=== PATIENT | female | born 1940 | race Caucasian/White ===

== ENCOUNTER → 2022-08-22 14:32 | Outpatient (BNVA) | payer MEDICARE, SELFPAY | PROVIDERS: PCP Nurse Practitioner Family; Visit Provider Family Medicine | DX: M54.50 Low back pain, unspecified (principal); M25.572 Pain in left ankle and joints of left foot; E78.5 Hyperlipidemia, unspecified; R73.9 Hyperglycemia, unspecified; I10 Essential (primary) hypertension | CPT/HCPCS: 72100; 73610; 80053; 80061; 83036 ==

== ENCOUNTER → 2022-09-16 09:59 | Outpatient (BNVA) | payer MEDICARE, SELFPAY | PROVIDERS: PCP Family Medicine; Visit Provider Podiatrist Foot & Ankle Surgery | DX: S82.832A Other fracture of upper and lower end of left fibula, initial encounter for closed fracture (principal); W17.2XXA Fall into hole, initial encounter | CPT/HCPCS: 73610; 99204 ==

== ENCOUNTER 2022-09-18 09:08 | Outpatient (CLI) | payer MEDICARE, SELFPAY ==
--- NOTE | 2022-09-18 09:15 | USCV_ITS ---
Nory Miramontes Age: 82 Gender: F : 1940 Exam Date: 09/18/2022 09:23 Ordering Phys: Laurence Light NP Technologist: Yanna Rob [place] [facility] [place]ication: Carotid stenosis history Risk Factors: hypertension Previous Vascular Surgery: None Right Brachial BP: / Left Brachial BP: / Right Left Velocity (cm/s) Spectral Plaque Velocity (cm/s) Spectral Plaque Syst/Diast Broadening Syst/Diast Broadening 58.40/ 9.90 Prox CCA 94.80 / 22.10 46.10/ 10.30 Mid CCA 75.00 / 14.30 39.30/ 9.40 Hetro Distal CCA 56.20 / 12.10 54.40/ 10.10 Prox ICA 119.10/ 25.40 Hetro 70.10/ 17.90 Mid ICA 53.60 / 11.70 76.70/ 21.10 Distal ICA 70.90 / 14.50 135.40 ECA 120.20 1.31 ICA/CCA 1.26 Antegrade Vertebral Antegrade 58.40/ 13.20 cm/s 63.20/ 13.70 cm/s Tri Subclavian Tri 103.6 0 CONCLUSIONS Right ICA stenosis <50%. Moderate atheromatous plaque right carotid bulb/ICA. Left ICA stenosis <50% at the upper end of the range.moderate atheromatous plaque left carotid bulb/ICA. Normal antegrade Doppler flow noted in the right vertebral artery. Normal antegrade Doppler flow noted in the left vertebral artery. Mark Samaniego MD (Electronically Signed) Final Date: 18 September 2022 10:14 S
== END 2022-09-18 09:09 | disposition home or self-care (01) ==
LOC: RAD 09:12
PROVIDERS: PCP Family Medicine; Visit Provider Nurse Practitioner Family
DX: I65.22 Occlusion and stenosis of left carotid artery (principal)
CPT/HCPCS: 93880

== ENCOUNTER 2022-10-18 07:31 | Day surgery (SDC) | payer MEDICARE, SELFPAY ==
--- NOTE | 2022-10-18 07:46 | PM.OPSURHP ---
Providers/Chief Complaint Primary Care Provider: Ly Saavedra MD History of Present Illness Nory Miramontes is a 82 year old female that states that last 2021, she fell in a hole in her garden.? She reports going to [facility] ED and had x-rays and was told it was not fractured.? She states that the pain never resolved and neither did the swelling.? She went to [facility] walk in in [facility] last month and was told that her ankle was fractured.? Patient has swelling to medial and lateral sides of left ankle present.? She states that she has increased pain Review of Systems General: Reports: 10 or more systems reviewed and unremarkable except in HPI and below Const: Denies: fever(s) or chills Eyes: Denies: change in vision Card: Denies: chest pain or palpitations Resp: Denies: dyspnea or productive cough GI: Denies: abdominal pain, nausea or vomiting : Denies: flank pain Musc: Reports: extremity pain, joint pain, joint stiffness, limited range of motion and deformity Skin/Breast: Reports: skin tenderness; Denies: rash Neuro: Reports: difficulty walking; Denies: numbness in extremities, sensory changes or frequent falls Psych: Denies: suicidal ideation Lionel/Lymph: Denies: easy bruising Medications/Allergies Home Medications Medication Instructions Recorded Confirmed Last Taken Type aspirin 81 mg capsule 81 mg PO DAILY 07/11/22 10/24/22 10/13/22 History cholecalciferol (vitamin D3) 50 50 mcg PO DAILY 07/11/22 10/24/22 10/17/22 History mcg (2,000 unit) capsule coenzyme Q10 200 mg capsule 200 mg PO DAILY #90 caps 07/11/22 10/24/22 10/17/22 Rx cyanocobalamin (vitamin B-12) 500 250 mcg PO DAILY 07/11/22 10/24/22 10/17/22 History mcg tablet hydrochlorothiazide 25 mg tablet 25 mg PO DAILY 07/11/22 10/24/22 10/17/22 History losartan 100 mg tablet 100 mg PO DAILY 07/11/22 10/24/22 10/17/22 History metoprolol tartrate 50 mg tablet 50 mg PO BID 07/11/22 10/24/22 10/18/22 History omega 3-ews-wld-fish oil 300 1 cap PO DAILY 1210/24/22 10/17/22 History mg-1,000 mg capsule (Fish Oil) simvastatin 20 mg tablet 20 mg PO DAILY 07/11/22 10/24/22 10/17/22 History tumeric 100 mg-sangita 150 mg-olive cap PO 07/11/22 10/24/22 10/17/22 History 50 mg-oreg 150 mg-caprylate capsule amlodipine 5 mg tablet See Rx Instructions .Route 09/19/22 10/24/22 10/17/22 Rx .COMPLEX #90 tabs Allergies Allergy/AdvReac Type Severity Reaction Status Date / Time nickel Allergy ALGY-Rash Verified 10/24/22 14:17 codeine AdvReac Intermediate NAUSEA Verified 10/24/22 14:17 Penicillins AdvReac Intermediate HIVES Verified 10/24/22 14:17 Sulfa (Sulfonamide AdvReac Intermediate HIVES Verified 10/24/22 14:17 Antibiotics) PFSH PFSH: Medical History Fibroid tumor Hyperlipidemia Hypertension Left carotid artery occlusion Surgical History History of tonsillectomy History of tubal ligation Family History Father Bleeding disorder Hyperlipidemia CAD (coronary artery disease) Thyroid disease Hyperthyroidism Mother Dementia alzhimers Grandfather Dementia maternal Grandmother Hypertension maternal Denies family history of Diabetes Chronic kidney disease (CKD) Lung disease Cancer Social History Smoking and tobacco status: former smoker Second hand smoke exposure: No Female Reproductive History: Para: 2 Vital Signs Vitals Signs: Last Vital Signs Temp 97.2 F L 10/18/22 09:54 Pulse 66 10/18/22 10:02 Resp 18 10/18/22 10:02 BP 147/61 10/18/22 10:02 Pulse Ox 96 10/18/22 10:02 O2 Del Method 10/18/22 09:54 Physical Exam Const: COMMON NORMALS: no acute distress, patient oriented x3 and alert HENMT: COMMON NORMALS: normocephalic HEAD & SCALP: normocephalic Eye: COMMON NORMALS: Equal, round and reactive pupils present, EOMs intact bilaterally and conjunctivae normal CONJUNCTIVA: Yes conjunctivae normal PUPIL: Yes Equal, round and reactive pupils present Chest: CHEST: Yes Symmetrical chest wall rise Resp: COMMON NORMALS: normal respiratory effort, No use of accessory muscles and clear to auscultation bilaterally EFFORT & INSPECTION: Yes able to speak in complete sentences and Yes symmetric chest movement AUSCULTATION: clear to auscultation bilaterally Cardio: COMMON NORMALS: regular rate, regular rhythm, No murmurs present (Cardio) and Peripheral pulses 2+ throughout RATE: regular rate RHYTHM: regular rhythm PERIPHERAL PULSES: Peripheral pulses 2+ throughout Extremity: COMMON NORMALS: capillary refill normal, no calf tenderness and no pedal edema (Focal edema right ankle medial and lateral malleolus) GENERAL: Yes edema LEFT LOWER EXTREMITY: Yes ankle joint (Pain at left lateral malleolus.) Left ankle: Yes inspection (No abrasion or laceration), Yes palpation (Pain to palpation medial and lateral malleolus.), Yes ROM (Guarded secondary to pain), Yes neurovascular exam (Dorsalis pedis and posterior tibial arteries palpable) and Yes other Neuro: COMMON NORMALS: patient oriented x3 SENSORIUM/ORIENTATION: Yes alert OTHER: Protective sensation intact to light touch of the left foot. Psych: COMMON NORMALS: mental status grossly normal and cooperative Skin: COMMON NORMALS: no wounds NARRATIVE SKIN EXAM: Ecchymosis at the medial lateral malleolus right ankle. No fracture blisters present. GENERAL SKIN EXAM: no erythema TRAUMA: no lacerations HAIR: general thinning Data 10/18/22 08:00 10/18/22 08:00 A&P Assessment and plan (1) Left ankle pain: (2) Painful orthopaedic hardware: Plan 82-year-old female presents with nonhealing left distal fibular fracture, is a minimally displaced transverse fracture she sustained from an injury last summer.? She cannot tolerate palpation to the distal fibula, left ankle.? She has pain with weightbearing, standing and everyday activities at the left ankle.? States that this is affecting her quality of life also has difficulty sleeping due to the pain.? Would like to discuss surgical options.? Discussed a variety of surgical options.? Both interfragmentary fixation versus hook plate.? Would also like to order a bone stimulator given the length of time on the type of fracture that she has potentially should have healed on its own.? Will require minimum of protected weightbearing with Cam boot postoperatively versus nonweightbearing 6 weeks pending intraoperative findings and type of fixation utilized.? Planning on a hook plate.? Will be scheduled for outpatient surgery October 18.? Will require previous x-rays done at [facility] to submit for bone stimulator approval. I reviewed at length with the patient, the risks, potential complications, benefits, alternatives, expectations, and typical outcomes associated with the surgery. The risks and potential complications were explained in detail, including but not limited to infection, wound dehiscence or soft tissue complications, bleeding and hematoma, chronic edema, neuritis or nerve damage producing numbness or chronic pain, CRPS, failure to relieve pain or worsening pain, thick / painful / unsightly scar, limited motion / stiffness, malposition, delayed union, malunion, or nonunion, fracture, reaction to implants, anesthetic complications, venous thromboembolism, and deformity recurrence.? I discussed the notion of no regrets with the patient as it pertains to complications and outcomes. The patient seemed to understand the nature of the proposed care and required convalescence. They asked appropriate questions, answered to their satisfaction. They are aware no guarantees can be made as to a satisfactory outcome and they understand there may be other possible unforeseen complications or outcomes not listed here that will be treated accordingly if they arise. There were no written or implied guarantees given to the patient. They gave informed consent to proceed. Patient n.p.o. since midnight. Informed consent signed by patient myself. I initialed her left ankle. Coding Level of Care Code Acute Code for [facility] Fwd Diagnoses Left ankle pain M25.572 Painful orthopaedic hardware T84.84XA
[2022-10-18 07:49] VITALS: BP 157/63; PULSE 54; RESP 16; TEMP 36.6; O2SAT 96
--- NOTE | 2022-10-18 08:07 | ANES.PREANE2 ---
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 Operation Date: 10/18/22 09:40 Proposed Procedures p : Resection of nonunion with internal fixation left fibula 82001,S82.62XK(Left) - Guru Garcia DPM Familial anesthetic complications: PONV Was Beta Augustin taken within 24 hours: Yes Was Clonidine taken within 24 hours: N/A Last intake: Intake Last Liquid Date 10/17/22 Last Liquid Time 21:00 Last Solid Date 10/17/22 Last Solid Time 20:00 Social No alcohol and No tobacco Exam alert, oriented x 3, clear to auscultation bilaterally and regular rate & rhythm Airway Mallampati: Class II Dentition: full CV/HEM Hypertension Metabolic Hyperlipidemia Anesthetic Plan ASA status: 2 Anesthesia: General Risk of > 500 ml blood loss (7ml/kg in children): No Medications/Allergies Home Medications Medication Instructions Recorded Confirmed Last Taken Type aspirin 81 mg capsule 81 mg PO DAILY 07/11/22 10/17/22 10/13/22 History cholecalciferol (vitamin D3) 50 50 mcg PO DAILY 07/11/22 10/17/22 10/17/22 History mcg (2,000 unit) capsule coenzyme Q10 200 mg capsule 200 mg PO DAILY #90 caps 07/11/22 10/17/22 10/17/22 Rx cyanocobalamin (vitamin B-12) 500 250 mcg PO DAILY 07/11/22 10/17/22 10/17/22 History mcg tablet hydrochlorothiazide 25 mg tablet 25 mg PO DAILY 07/11/22 10/17/22 10/17/22 History losartan 100 mg tablet 100 mg PO DAILY 07/11/22 10/17/22 10/17/22 History metoprolol tartrate 50 mg tablet 50 mg PO BID 07/11/22 10/17/22 10/18/22 History omega 8-svu-vlg-fish oil 300 1 cap PO DAILY 07/11/22 10/17/2210/17/23 History mg-1,000 mg capsule (Fish Oil) simvastatin 20 mg tablet 20 mg PO DAILY 07/11/22 10/17/22 10/17/22 History tumeric 100 mg-sangita 150 mg-olive cap PO 07/11/22 09/26/22 10/17/22 History 50 mg-oreg 150 mg-caprylate capsule amlodipine 5 mg tablet See Rx Instructions .Route 09/19/22 10/17/22 10/17/22 Rx .COMPLEX #90 tabs Allergies Allergy/AdvReac Type Severity Reaction Status Date / Time nickel Allergy ALGY-Rash Verified 10/18/22 07:56 codeine AdvReac Intermediate NAUSEA Verified 10/17/22 09:47 Penicillins AdvReac Intermediate HIVES Verified 10/17/22 09:47 Sulfa (Sulfonamide AdvReac Intermediate HIVES Verified 10/17/22 09:47 Antibiotics) [facility] Anesthesia Medical History Fibroid tumor Hyperlipidemia Hypertension Left carotid artery occlusion Surgical History History of tonsillectomy History of tubal ligation Family History Father Bleeding disorder Hyperlipidemia CAD (coronary artery disease) Thyroid disease Hyperthyroidism Mother Dementia alzhimers Grandfather Dementia maternal Grandmother Hypertension maternal Denies family history of Diabetes Chronic kidney disease (CKD) Lung disease Cancer Social History Smoking and tobacco status: former smoker Second hand smoke exposure: No Female Reproductive History Para: 2 Data Anesthesia Cardiac Studies: No Data to Display
[2022-10-18 08:10] LABS: Basophils % 0.3 %; Eosinophils # 0.1 10^3/uL (0.0-0.8); Eosinophils % 1.5 %; Hematocrit 42.4 % (37.0-47.0); Hemoglobin 14.4 g/dL (11.5-15.3); Lymphocytes # 1.1 10^3/uL (0.8-4.8); Lymphocytes % 11.7 %; Mean Corpuscular Hemoglobin 31.2 pg (28.0-34.0); Mean Corpuscular Volume 91.8 fl (81-99); Mean Platelet Volume 9.9 fL (7.4-10.4); Monocytes # 0.8 10^3/uL (0.2-0.9); Monocytes % 9.2 %; Neutrophils # 7.05 10^3/uL (1.8-7.7); Neutrophils % 76.9 %; Nucleated Red Blood Cells % 0 %; Platelet Count 265 10^3/cmm (130-400); Red Blood Count 4.62 10^6/uL (4.1-5.3); Red Cell Distribution Width 12.3 % (12.1-15.1); White Blood Count 9.2 10^3/uL (4.0-10.0)
[2022-10-18] MEDS: sodium chloride 0.9% 1,000 ML 30 ML IV (08:12)
[2022-10-18] MEDS: scopolamine 1.5 Patch 1 PATCH TRANSDERMA (08:13)
--- NOTE | 2022-10-18 08:13 | ECG_ITS ---
[facility] Test Date: 2022-10-18 Pat Name: Nory Miramontes Department: Room: Gender: Female [employer] [place]: : 1940 Requested By: Salome Zuñiga Order Number: [id number] Luis M MD: Hermes Wu M.D. Measurements Intervals [place] Rate: 52 P: 55 AR: 163 QRS: 64 QRSD: 90 T: 13 QT: 462 QTc: 431 Interpretive Statements SINUS BRADYCARDIA POSSIBLE LEFT ATRIAL ENLARGEMENT [-0.1mV P-WAVE IN V1/V2] POSSIBLE RIGHT VENTRICULAR CONDUCTION DELAY [RSR (QR) IN V1/V2] NONSPECIFIC T-WAVE ABNORMALITY No previous ECG available for comparison Electronically Signed On 10-18-2022 23:13:54 CDT by Hermes Wu M.D. [email or web address]
--- NOTE | 2022-10-18 08:15 | W.PM.OPSUD ---
Surgery/Procedure H&P Update DATE OF PROCEDURE: October 18, 2022 DATE H&P PERFORMED: 09/20/22 CHANGES TO PREVIOUS DOCUMENTATION: none PREOP DIAGNOSIS: Nonunion of left distal fibular fracture PLANNED PROCEDURE: Operation Date: 10/18/22 09:40 Proposed Procedures p : Resection of nonunion with internal fixation left fibula 48514,S82.62XK(Left) - Guru Garcia DPM
[2022-10-18] MEDS: clindamycin 600 MG/50 ML PREMIX 100 MG IV (08:25)
[2022-10-18 08:59] LABS: Anion Gap 16.9 (5-19); Blood Urea Nitrogen 16 mg/dL (8-23); Calcium 9.2 mg/dL (8.5-10.5); Carbon Dioxide 25 mmol/L (22-29); Chloride 106 mmol/L (98-107); Glucose 94 mg/dL (65-115); Osmolality Calculated 299 mOsm/kg (285-295); Potassium 3.9 mmol/L (3.5-5.1); Sodium 144 mmol/L (136-145)
[2022-10-18 09:34] VITALS: BP 164/68; PULSE 58; RESP 14; TEMP 36.1; O2SAT 98
--- NOTE | 2022-10-18 09:34 | PM.OP ---
Operative Report Date of procedure: October 18, 2022 Pre-op diagnosis: Preop Diagnosis Nonunion of left distal fibular fracture Post-op diagnosis: Nonunion left distal fibular fracture Post-op findings: Nonunion to the left distal fibula Procedure done: Resection of nonunion with internal fixation left fibula. CPT code 26338 Implants: Platina hook plate with 3.5 millimeter screws, 2-0 Vicryl, 3-0 Vicryl, skin brooke Specimens removed/disposition: None Surgeon: Guru Garcia D.P.M. Health Underwriter: Ramona Estimated blood loss: Less than 5 mL 40 IV fluids: None Urine output: None Complications: None Findings: Nonunion left distal fibula Brief History: 82-year-old female presents with nonhealing left distal fibular fracture, is a minimally displaced transverse fracture she sustained from an injury last summer.? She cannot tolerate palpation to the distal fibula, left ankle.? She has pain with weightbearing, standing and everyday activities at the left ankle.? States that this is affecting her quality of life also has difficulty sleeping due to the pain.? Would like to discuss surgical options.? Discussed a variety of surgical options.? Both interfragmentary fixation versus hook plate.? Would also like to order a bone stimulator given the length of time on the type of fracture that she has potentially should have healed on its own.? Will require minimum of protected weightbearing with Cam boot postoperatively versus nonweightbearing 6 weeks pending intraoperative findings and type of fixation utilized.? Planning on a hook plate.? Will be scheduled for outpatient surgery October 18.? Will require previous x-rays done at [facility] to submit for bone stimulator approval. I reviewed at length with the patient, the risks, potential complications, benefits, alternatives, expectations, and typical outcomes associated with the surgery. The risks and potential complications were explained in detail, including but not limited to infection, wound dehiscence or soft tissue complications, bleeding and hematoma, chronic edema, neuritis or nerve damage producing numbness or chronic pain, CRPS, failure to relieve pain or worsening pain, thick / painful / unsightly scar, limited motion / stiffness, malposition, delayed union, malunion, or nonunion, fracture, reaction to implants, anesthetic complications, venous thromboembolism, and deformity recurrence.? I discussed the notion of no regrets with the patient as it pertains to complications and outcomes. The patient seemed to understand the nature of the proposed care and required convalescence. They asked appropriate questions, answered to their satisfaction. They are aware no guarantees can be made as to a satisfactory outcome and they understand there may be other possible unforeseen complications or outcomes not listed here that will be treated accordingly if they arise. There were no written or implied guarantees given to the patient. They gave informed consent to proceed. Informed consent signed by patient and myself. Initial patient's left ankle. Procedure: Under mild sedation the patient was brought to the operating room and remained on the gurney in supine position. A timeout was performed. Anesthesia was then administered by the anesthesia service. Local anesthesia injected by myself consisting of one-to-one mixture 0.5% Marcaine and Exparel subcutaneously in a grid like fashion proximal to the left lateral ankle operative site, total of 20 cc each utilized. Well-padded pneumatic tourniquet applied to the left high calf. Left lower extremity was then scrubbed, prepped and draped utilizing normal aseptic technique. Left foot and ankle were exanguinated with an Esmarch bandage and the tourniquet inflated to 250 mmHg. Attention was directed to the left lateral malleolus where a linear longitudinal incision was made directly over the lateral malleolus through skin with a #15 blade with dissection carried down to through subcutaneous tissue to the layer of periosteum utilizing a combination of sharp and blunt technique. Care was taken to retract and preserve neurovascular and tendinous structures. All bleeders were ligated and cauterized as necessary. Linear periosteal incision was made in a nonunion fracture of the left distal fibula transverse fracture orientation was appreciated. This was mobile. It was evacuated of bony callus and fibrosis down to healthy bone, this was then fixated utilizing standard AO technique, Platina hook plate with 3.5 mm locking and nonlocking screws utilized. Excellent bony apposition and compression noted at the fracture site. Intraoperative fluoroscopy confirmed that the hardware did not violate the ankle mortise. Smooth range of motion of left ankle appreciated intraoperatively. The incision was then irrigated with copious amounts of sterile skin solution and closed in a layered fashion. Periosteum was reapproximated utilizing 2-0 Vicryl. Subcutaneous tissue with 3-0 Vicryl and skin with skin brooke. The incision site was dressed with Adaptic, sterile 4 x 4's, Kerlix and Bernard wrap. Cam boot was applied to the left lower extremity. Tourniquet was deflated and a prompt hyperemic response was noted to the distal digits of the left foot. Patient tolerated the procedure and anesthesia well and was transferred to the PACU with vital signs stable and vascular status intact. Following a period of postoperative monitoring she will be discharged home may be weightbearing protected in the cam boot as tolerated below threshold of pain.
[2022-10-18 09:40] VITALS: BP 154/61; PULSE 76; RESP 20; O2SAT 97
[2022-10-18 09:45] VITALS: BP 132/66; PULSE 68; RESP 24; O2SAT 97
[2022-10-18 09:54] VITALS: BP 149/63; PULSE 71; RESP 20; TEMP 36.2; O2SAT 96
[2022-10-18 10:02] VITALS: BP 147/61; PULSE 66; RESP 18; O2SAT 96
--- NOTE | 2022-10-18 10:40 | XR_ITS ---
WS: [id number] EXAMINATION: XR ankle LT 1V [id number] REASON FOR EXAM: OR PICS COMPARISON: 09/16/2022. ORDER DATE: 10/18/2022 10:40 AM FINDINGS/IMPRESSION A single view demonstrates curved fibular plate and screws surrounding the distal fibular fragment. T otal fluoroscopy time 3.8 seconds
--- NOTE | 2022-10-18 12:43 | ANE.PACU2 ---
Inpatient post-anesthesia follow up: Airway intact: Yes Vital signs: Temperature 97.2 F Pulse Rate 66 Respiratory Rate 18 Blood Pressure 147/61 Pulse Oximetry 96 Oxygen Delivery Me thod Room Air Oxygen Flow Rate Fraction of Inspir ed Oxygen Hydration adequate: Yes Nausea and vomiting: No Pain level: 1 Mental status: Baseline
== END 2022-10-18 10:30 | disposition home or self-care (01) ==
PROVIDERS: Anesthesiology; PCP Family Medicine; Visit Provider Podiatrist Foot & Ankle Surgery
PROC: (CPT 27726; principal; 2022-10-18 09:30)
DX: S82.62XK Displaced fracture of lateral malleolus of left fibula, subsequent encounter for closed fracture with nonunion (principal); X58.XXXD Exposure to other specified factors, subsequent encounter; I10 Essential (primary) hypertension; E78.5 Hyperlipidemia, unspecified; Z79.82 Long term (current) use of aspirin; Z87.891 Personal history of nicotine dependence
CPT/HCPCS: 27726; 73600; 76000; 80048; 85025; 93005; C1713; C9290; J1100; J2250; J2405; J2704; J3010; J3490; J7030

== ENCOUNTER → 2022-10-24 14:12 | Outpatient (BNVA) | payer MEDICARE, SELFPAY | PROVIDERS: PCP Family Medicine; Visit Provider Podiatrist Foot & Ankle Surgery | DX: Z98.890 Other specified postprocedural states (principal); S82.832D Other fracture of upper and lower end of left fibula, subsequent encounter for closed fracture with routine healing; X58.XXXD Exposure to other specified factors, subsequent encounter | CPT/HCPCS: 99024 ==

== ENCOUNTER → 2022-10-31 14:54 | Outpatient (BNVA) | payer MEDICARE, SELFPAY | PROVIDERS: PCP Family Medicine; Visit Provider Podiatrist Foot & Ankle Surgery | DX: Z98.890 Other specified postprocedural states (principal); S82.832A Other fracture of upper and lower end of left fibula, initial encounter for closed fracture; X58.XXXA Exposure to other specified factors, initial encounter | CPT/HCPCS: 73610; 99024 ==

== ENCOUNTER → 2022-11-11 15:43 | Outpatient (BNVA) | payer MEDICARE, SELFPAY | PROVIDERS: PCP Family Medicine; Visit Provider Podiatrist Foot & Ankle Surgery | DX: Z98.890 Other specified postprocedural states (principal); S82.832A Other fracture of upper and lower end of left fibula, initial encounter for closed fracture; X58.XXXA Exposure to other specified factors, initial encounter | CPT/HCPCS: 73610; 99024 ==

== ENCOUNTER → 2022-11-28 13:23 | Outpatient (BNVA) | payer MEDICARE, SELFPAY | PROVIDERS: PCP Family Medicine; Visit Provider Podiatrist Foot & Ankle Surgery | DX: Z98.890 Other specified postprocedural states (principal); S82.832A Other fracture of upper and lower end of left fibula, initial encounter for closed fracture; X58.XXXA Exposure to other specified factors, initial encounter; Z91.199 Patient's noncompliance with other medical treatment and regimen due to unspecified reason | CPT/HCPCS: 73610; 99024 ==

== ENCOUNTER → 2022-12-19 14:03 | Outpatient (BNVA) | payer MEDICARE, SELFPAY | PROVIDERS: PCP Family Medicine; Visit Provider Podiatrist Foot & Ankle Surgery | DX: Z98.890 Other specified postprocedural states (principal); S82.832A Other fracture of upper and lower end of left fibula, initial encounter for closed fracture; X58.XXXA Exposure to other specified factors, initial encounter | CPT/HCPCS: 73610; 99024 ==

== ENCOUNTER → 2023-01-30 09:59 | Outpatient (BNVA) | payer MEDICARE, SELFPAY | PROVIDERS: PCP Family Medicine; Visit Provider Podiatrist Foot & Ankle Surgery | DX: Z98.890 Other specified postprocedural states (principal); S82.832D Other fracture of upper and lower end of left fibula, subsequent encounter for closed fracture with routine healing; X58.XXXD Exposure to other specified factors, subsequent encounter | CPT/HCPCS: 73610; 99213 ==

== ENCOUNTER → 2023-03-13 14:18 | Outpatient (BNVA) | payer MEDICARE, SELFPAY | PROVIDERS: PCP Family Medicine; Visit Provider Family Medicine | DX: M79.601 Pain in right arm | CPT/HCPCS: 73060 ==

== ENCOUNTER 2023-03-24 13:15 | Outpatient (CLI) | payer MEDICARE, SELFPAY ==
--- NOTE | 2023-03-24 13:30 | XR_ITS ---
WS: [id number] DEXA (DUAL ENERGY X-RAY ABSORPTIOMETRY) Bone mineral density was performed using a [employer] machine. HISTORY: Z78.0 - Asymptomatic menopausal state COMPARISON: None available. Lumbar spine BMD (L1-L4): 1.097 g/cm2 T score: -0.7 Z score: 1.1 Total hip BMD: Left: 0.821 g/cm2. T score: -1.5 Z score: 0.5 Right: 0.839 g/cm2. T score: -1.3 Z score: 0.7 10 year probability of a major osteoporotic fracture is 25.7%. IMPRESSION: OSTEOPENIA based upon the WHO classification for females.
== END 2023-03-24 13:16 | disposition home or self-care (01) ==
PROVIDERS: PCP Family Medicine; Visit Provider Family Medicine
DX: M85.80 Other specified disorders of bone density and structure, unspecified site (principal); Z13.820 Encounter for screening for osteoporosis; Z78.0 Asymptomatic menopausal state
CPT/HCPCS: 77080

== ENCOUNTER → 2023-04-24 10:28 | Outpatient (BNVA) | payer MEDICARE, SELFPAY | PROVIDERS: PCP Family Medicine; Visit Provider Family Medicine | DX: M25.511 Pain in right shoulder (principal); I10 Essential (primary) hypertension; E78.5 Hyperlipidemia, unspecified; M19.011 Primary osteoarthritis, right shoulder | CPT/HCPCS: 73030; 80053 ==

== ENCOUNTER → 2023-08-15 10:14 | Outpatient (BNVA) | payer MEDICARE, SELFPAY | PROVIDERS: PCP Family Medicine; Visit Provider Physician Assistant | DX: M75.41 Impingement syndrome of right shoulder (principal); M75.21 Bicipital tendinitis, right shoulder | CPT/HCPCS: 20610; 99203; J3301 ==

== ENCOUNTER 2023-08-28 06:00 | Outpatient (RCR) | payer MEDICARE, SELFPAY | END 2023-09-25 23:59 | disposition home or self-care (01) | LOC: MPT 06:00 | PROVIDERS: Visit Provider Physician Assistant | DX: M75.41 Impingement syndrome of right shoulder (principal) | CPT/HCPCS: 97110; 97161 ==

== ENCOUNTER 2023-09-26 06:00 | Outpatient (RCR) | payer MEDICARE, SELFPAY | END 2023-10-26 23:59 | disposition home or self-care (01) | LOC: MPT 06:00 | PROVIDERS: PCP Family Medicine; Visit Provider Physician Assistant | DX: M75.41 Impingement syndrome of right shoulder (principal) | CPT/HCPCS: 97110; 97140; G0283 ==

== ENCOUNTER → 2023-10-02 10:07 | Outpatient (BNVA) | payer MEDICARE, SELFPAY | PROVIDERS: PCP Family Medicine; Visit Provider Physician Assistant | DX: M75.41 Impingement syndrome of right shoulder (principal); M75.21 Bicipital tendinitis, right shoulder | CPT/HCPCS: 99213 ==

== ENCOUNTER 2023-10-27 06:00 | Outpatient (RCR) | payer MEDICARE, SELFPAY | END 2023-11-25 23:59 | disposition home or self-care (01) | LOC: MPT 06:00 | PROVIDERS: PCP Family Medicine; Visit Provider Physician Assistant | DX: M75.41 Impingement syndrome of right shoulder (principal) | CPT/HCPCS: 97110; 97140; G0283 ==

== ENCOUNTER 2023-11-26 06:00 | Outpatient (RCR) | payer MEDICARE, SELFPAY | END 2023-12-26 23:59 | disposition home or self-care (01) | LOC: MPT 06:00 | PROVIDERS: PCP Family Medicine; Visit Provider Physician Assistant | DX: M75.41 Impingement syndrome of right shoulder (principal) | CPT/HCPCS: 97110; 97140; G0283 ==

== ENCOUNTER → 2024-01-06 09:05 | Outpatient (BNVA) | payer MEDICARE, SELFPAY | PROVIDERS: PCP Family Medicine; Visit Provider Physician Assistant | DX: M75.41 Impingement syndrome of right shoulder (principal); M75.21 Bicipital tendinitis, right shoulder | CPT/HCPCS: 99213 ==

== ENCOUNTER → 2024-02-18 13:40 | Outpatient (BNVA) | payer MEDICARE, SELFPAY | PROVIDERS: PCP Family Medicine; Visit Provider Family Medicine | DX: I10 Essential (primary) hypertension (principal); I50.9 Heart failure, unspecified; L50.9 Urticaria, unspecified; I50.22 Chronic systolic (congestive) heart failure | CPT/HCPCS: 80053; 80061; 83880 ==

== ENCOUNTER 2024-02-24 12:26 | Outpatient (CLI) | payer MEDICARE, SELFPAY ==
--- NOTE | 2024-02-24 12:30 | USCV_ITS ---
Nory Miramontes Age: 83 Gender: F : 1940 Exam Date: 02/24/2024 13:08 Ordering Phys: Ly Saavedra MD Technologist: Exam Location: [facility] [place] Indication: murmru BP: 125 / 70 HR: 87 Rhythm: Sinus Technical Quality: Adequate MEASUREMENTS (Male / Female) Normal Values 2D ECHO LV Diastolic Diameter PLAX 4.6 cm 4.2 - 5.9 / 3.9 - 5.3 cm IVS Diastolic Thickness 1.1 cm 0.6 - 1.0 / 0.6 - 0.9 cm IVS Systolic Thickness 1.6 cm LVPW Diastolic Thickness 0.9 cm 0.6 - 1.0 / 0.6 - 0.9 cm LVPW Systolic Thickness 1.4 cm LVOT Diameter 2.1 cm LV Ejection Fraction 2D Teich 69.3 % LV Ejection Fraction MOD 4C 77.7 % LV Ejection Fraction MOD 2C 69.0 % LV Ejection Fraction 2C AL 69.0 % LA Diameter 3.0 cm RA Systolic Volume 4C AL 48.8 ml RA Systolic Volume 4C MOD 41.6 ml LA Sys Volume AL 78.8 cm cubed LA Sys Volume Index AL 45.2 cm cubed/m squared Aorta at Sinotubular Diameter 1.7 cm IVC Diameter 1.9 cm M-MODE LA Ao Ratio MM 1.2 AV Cusp Separation MM 1.7 cm DOPPLER AV Peak Velocity 361.7 cm/s LVOT Peak Velocity 88.0 cm/s AV Area Cont Eq vti 1.4 cm squared AV Area Cont Eq pk 0.8 cm squared MV Area PHT 3.5 cm squared Mitral E to A Ratio 1.1 TV Peak Velocity 192.0 cm/s TR Peak Velocity 276.0 cm/s TR Peak Gradient 30.5 mmHg TV Peak E Velocity 113.0 cm/s Right Atrial Pressure 3.0 mmHg Pulmonary Artery Systolic Pressu 33.5 mmHg PV Peak Velocity 63.0 cm/s FINDINGS Left Ventricle Normal LV size ejection fraction of 69%. No gross wall motion normalities. Right Ventricle The right ventricle is normal in size and function. Right Atrium Moderately increased right atrial size. Left Atrium Moderately increased left atrial size. Mitral Valve Moderate mitral annular calcification. Trace mitral valve regurgitation. Aortic Valve Srro-yj-wdzjcius aortic valve regurgitation. Tricuspid Valve Trace to mild tricuspid valve regurgitation. Pulmonic Valve No gross abnormalities noted . Pericardium Normal pericardium without effusion. Aorta Plaque seen in the ascending aorta. IVC The inferior vena cava appears normal. CONCLUSIONS Normal LV size ejection fraction of 69%. No gross wall motion normalities. Moderate biatrial enlargement. Moderate mitral annular calcification. Trace mitral valve regurgitation. Lnkp-ty-wqnmeatm aortic valve regurgitation. Trace to mild tricuspid valve regurgitation. No intracardiac masses. No pericardial effusion. No similar previous studies are available for comparison Dr Hermes Wu MD [facility] (Electronically Signed) Final Date: 24 February 2024 23:52 S
== END 2024-02-24 12:27 | disposition home or self-care (01) ==
LOC: RAD 12:29
PROVIDERS: PCP Family Medicine; Visit Provider Family Medicine
DX: R60.0 Localized edema (principal); I11.0 Hypertensive heart disease with heart failure; R01.1 Cardiac murmur, unspecified; I08.3 Combined rheumatic disorders of mitral, aortic and tricuspid valves
CPT/HCPCS: 93306